=== PATIENT | female | born 1975 | race Caucasian/White ===

== ENCOUNTER 2020-10-30 13:02 | Emergency (ER) | payer BC ==
[2020-10-30 13:08] VITALS: RESP 18
[2020-10-30] MEDS ORDERED: IBUPROFEN 600 MG TAB PO STA (13:20)
[2020-10-30] MEDS ORDERED: ACETAMINOPHEN TAB 500 MG TAB PO STA (13:20)
--- NOTE | 2020-10-30 13:33 | XR ---
EXAMINATION TYPE: XR chest 2V DATE OF EXAM: 10/30/2020 COMPARISON: NONE HISTORY: Weakness, cough, and fever. TECHNIQUE: Frontal and lateral views of the chest are obtained. FINDINGS: There is no suspicious peripheral focal air space opacity, pleural effusion, or pneumothor ax seen. The cardiac silhouette size is within normal limits. The osseous structures are intact. O verlying bra strap. IMPRESSION: No acute pulmonary process.
--- NOTE | 2020-10-30 13:54 | ED ---
URI HPI - General Source: patient, RN notes reviewed Mode of arrival: ambulatory Limitations: no limitations <Trung Ibanez - Last Filed: 10/30/20 13:52> <Armando Valdes - Last Filed: 10/30/20 15:24> - General Chief Complaint: Upper Respiratory Infection Stated Complaint: fever,cough Time Seen by Provider: 10/30/20 13:11 - History of Present Illness Initial Comments: 45-year-old female presented to the emergency Department with chief complaint of cough congestion fever or chills body aches. Patient states started last Sunday she initially does feel like she had a cold she was seen at [facility] had a rapid Covid which was negative, patient negative influenza test at urgent care was given a Z-Dylan she did not start this. Patient states she said ongoing congestion and worsening fever today. (Trung Ibanez) - Related Data Home Medications Medication Instructions Recorded Confirmed Ascorbic Acid [Vitamin C] 1,000 mg PO DAILY 10/30/20 10/30/20 Azithromycin [Zithromax Z-pack (6 See Taper PO DIRECTED 10/30/20 10/30/20 tabs)] Benzonatate [Benzonatate Perle] 200 mg PO HS PRN 10/30/20 10/30/20 Cholecalciferol [Vitamin D3 (25 50 mcg PO DAILY 10/30/20 10/30/20 Mcg = 1000 Iu)] Cyanocobalamin (Vitamin B-12) 1,000 mcg PO DAILY 10/30/20 10/30/20 [Vitamin B-12] Multivitamins, Thera [Multivitamin 1 tab PO DAILY 10/30/20 10/30/20 (formulary)] Phenyleph/Acetaminophn/Doxylam 1 cap PO Q4H PRN 10/30/20 10/30/20 [Vicks Dayquil-Nyquil Sinex Cap] Allergies Allergy/AdvReac Type Severity Reaction Status Date / Time prednisone Allergy Unknown Verified 10/30/20 14:07 Review of Systems ROS Other: All systems not noted in ROS Statement are negative. <Trung Ibanez - Last Filed: 10/30/20 13:52> ROS Other: All systems not noted in ROS Statement are negative. <Armando Valdes - Last Filed: 10/30/20 15:24> ROS Statement: Those systems with pertinent positive or pertinent negative responses have been documented in the HPI. Past Medical History Past Medical History: No Reported History History of Any Multi-Drug Resistant Organisms: None Reported Past Surgical History: Breast Surgery, Orthopedic Surgery Past Psychological History: No Psychological Hx Reported Smoking Status: Never smoker Past Alcohol Use History: None Reported Past Drug Use History: None Reported <Trung Ibanez - Last Filed: 10/30/20 13:52> General Exam Limitations: no limitations General appearance: alert, in no apparent distress Head exam: Present: atraumatic, normocephalic, normal inspection Eye exam: Present: normal appearance, PERRL, EOMI. Absent: scleral icterus, conjunctival injection, periorbital swelling ENT exam: Present: normal exam, normal oropharynx, mucous membranes moist Neck exam: Present: normal inspection, full ROM. Absent: tenderness, meningismus, lymphadenopathy Respiratory exam: Present: normal lung sounds bilaterally. Absent: respiratory distress, wheezes, rales, rhonchi, stridor Cardiovascular Exam: Present: normal rhythm, tachycardia, normal heart sounds. Absent: systolic murmur, diastolic murmur, rubs, gallop, clicks GI/Abdominal exam: Present: soft, normal bowel sounds. Absent: distended, tenderness, guarding, rebound, rigid Back exam: Absent: CVA tenderness (R), CVA tenderness (L) Neurological exam: Present: alert Skin exam: Present: warm, dry, intact, normal color. Absent: rash <Trung Ibanez - Last Filed: 10/30/20 13:52> Course <Armando Valdes - Last Filed: 10/30/20 15:24> Vital Signs 10/30/20 10/30/20 10/30/20 13:05 13:18 14:34 Temperature 102.3 F H 100.8 F H Pulse Rate 122 H 89 Respiratory 18 18 18 Rate Blood Pressure 120/78 110/72 O2 Sat by Pulse 96 97 Oximetry - Reevaluation(s) Reevaluation #1: 10/30/20 15:20 Patient was endorsed to me by ED WILLAIM Ibanez with her lab results still pending. Patient reports having upper respiratory infection symptoms of cough, congestion and fever for the past 6 days or so. Patient's Covid test is negative. Patient's chest x-ray is unremarkable. Patient's labs are fairly unremarkable. Patient's UA is not suggestive of UTI. I suspect that the patient likely has a viral upper respiratory infection. Patient was counseled about URIs, fever control and symptom management. Patient was clearly explained return and follow-up instructions, and she feels comfortable with this plan. Patient was instructed to follow up closely with her primary care provider. (Armando Valdes) Medical Decision Making - Lab Data Result diagrams: 10/30/20 14:27 10/30/20 14:27 <Armando Valdes - Last Filed: 10/30/20 15:24> - Lab Data Lab Results 10/30/20 10/30/20 10/30/20 Range/Units 13:24 14:27 14:27 WBC 8.8 (3.8-10.6) k/uL RBC 4.61 (3.80-5.40) m/uL Hgb 14.6 (11.4-16.0) gm/dL Hct 41.4 (34.0-46.0) % MCV 89.8 (80.0-100.0) fL MCH 31.6 (25.0-35.0) pg MCHC 35.2 (31.0-37.0) g/dL RDW 12.7 (11.5-15.5) % Plt Count 161 (150-450) k/uL MPV 8.2 Neutrophils % 81 % Lymphocytes % 7 % Monocytes % 10 % Eosinophils % 0 % Basophils % 0 % Neutrophils # 7.1 (1.3-7.7) k/uL Lymphocytes # 0.7 L (1.0-4.8) k/uL Monocytes # 0.9 (0-1.0) k/uL Eosinophils # 0.0 (0-0.7) k/uL Basophils # 0.0 (0-0.2) k/uL Sodium (137-145) mmol/L Potassium (3.5-5.1) mmol/L Chloride (98-107) mmol/L Carbon Dioxide (22-30) mmol/L Anion Gap mmol/L BUN (7-17) mg/dL Creatinine (0.52-1.04) mg/dL Est GFR (CKD-EPI)AfAm (>60 ml/min/1.73 sqM) Est GFR (CKD-EPI)NonAf (>60 ml/min/1.73 sqM) Glucose (74-99) mg/dL Plasma Lactic Acid Venancio (0.7-2.0) mmol/L Calcium (8.4-10.2) mg/dL Total Bilirubin (0.2-1.3) mg/dL AST (14-36) U/L ALT (4-34) U/L Alkaline Phosphatase (38-126) U/L Total Protein (6.3-8.2) g/dL Albumin (3.5-5.0) g/dL Urine Color Yellow Urine Appearance Cloudy H (Clear) Urine pH 8.0 (5.0-8.0) Ur Specific [place] 1.018 (1.001-1.035) Urine Protein Trace H (Negative) Urine Glucose (UA) Negative (Negative) Urine Ketones 1+ H (Negative) Urine Blood Negative (Negative) Urine Nitrite Negative (Negative) Urine Bilirubin Negative (Negative) Urine Urobilinogen <2.0 (<2.0) mg/dL Ur Leukocyte Esterase Negative (Negative) Urine RBC 4 (0-5) /hpf Urine WBC 1 (0-5) /hpf Ur Squamous Epith Cells <1 (0-4) /hpf Urine Bacteria Occasional H (None) /hpf Urine Mucus Rare H (None) /hpf Coronavirus (PCR) Not Detected (Not Detectd) 10/30/20 10/30/20 Range/Units 14:27 14:27 WBC (3.8-10.6) k/uL RBC (3.80-5.40) m/uL Hgb (11.4-16.0) gm/dL Hct (34.0-46.0) % MCV (80.0-100.0) fL MCH (25.0-35.0) pg MCHC (31.0-37.0) g/dL RDW (11.5-15.5) % Plt Count (150-450) k/uL MPV Neutrophils % % Lymphocytes % % Monocytes % % Eosinophils % % Basophils % % Neutrophils # (1.3-7.7) k/uL Lymphocytes # (1.0-4.8) k/uL Monocytes # (0-1.0) k/uL Eosinophils # (0-0.7) k/uL Basophils # (0-0.2) k/uL Sodium 135 L (137-145) mmol/L Potassium 4.2 (3.5-5.1) mmol/L Chloride 100 (98-107) mmol/L Carbon Dioxide 27 (22-30) mmol/L Anion Gap 8 mmol/L BUN 6 L (7-17) mg/dL Creatinine 0.58 (0.52-1.04) mg/dL Est GFR (CKD-EPI)AfAm >90 (>60 ml/min/1.73 sqM) Est GFR (CKD-EPI)NonAf >90 (>60 ml/min/1.73 sqM) Glucose 103 H (74-99) mg/dL Plasma Lactic Acid Venancio 0.8 (0.7-2.0) mmol/L Calcium 9.9 (8.4-10.2) mg/dL Total Bilirubin 0.7 (0.2-1.3) mg/dL AST 30 (14-36) U/L ALT 18 (4-34) U/L Alkaline Phosphatase 67 (38-126) U/L Total Protein 7.1 (6.3-8.2) g/dL Albumin 4.4 (3.5-5.0) g/dL Urine Color Urine Appearance (Clear) Urine pH (5.0-8.0) Ur Specific [place] (1.001-1.035) Urine Protein (Negative) Urine Glucose (UA) (Negative) Urine Ketones (Negative) Urine Blood (Negative) Urine Nitrite (Negative) Urine Bilirubin (Negative) Urine Urobilinogen (<2.0) mg/dL Ur Leukocyte Esterase (Negative) Urine RBC (0-5) /hpf Urine WBC (0-5) /hpf Ur Squamous Epith Cells (0-4) /hpf Urine Bacteria (None) /hpf Urine Mucus (None) /hpf Coronavirus (PCR) (Not Detectd) Disposition <Trung Ibanez - Last Filed: 10/30/20 13:52> Is patient prescribed a controlled substance at d/c from ED?: No Time of Disposition: 15:24 <Armando Valdes - Last Filed: 10/30/20 15:24> Clinical Impression: Upper respiratory tract infection Disposition: HOME SELF-CARE Condition: Stable Instructions (If sedation given, give patient instructions): Upper Respiratory Infection (ED) Additional Instructions: Return to the ER immediately should you develop trouble breathing/shortness of breath, any significant pain, persistent vomiting, feeling dizzy or faint, or new or worsening symptoms. Follow up closely with your primary care provider. Referrals: None,Stated [Primary Care Provider] - 1-2 days James Hammer MD [REFERRING] - 1-2 days
[2020-10-30] MEDS ORDERED: SODIUM CHLORIDE 0.9% 1,000 ML IV ONE (14:34)
[2020-10-30 14:35] VITALS: BP 110/72; PULSE 89; TEMP 100.8
[2020-10-30 14:54] LABS: Basophils % (A) 0 %; Eosinophils % (A) 0 %; HCT 41.4 % (34.0-46.0); HGB 14.6 gm/dL (11.4-16.0); Lymphocytes # (A) 0.7 k/uL (1.0-4.8); Lymphocytes % (A) 7 %; MCH 31.6 pg (25.0-35.0); MCHC 35.2 g/dL (31.0-37.0); MCV 89.8 fL (80.0-100.0); Mean Platelet Volume 8.2; Monocytes # (A) 0.9 k/uL (0-1.0); Monocytes % (A) 10 %; Neutrophils # (A) 7.1 k/uL (1.3-7.7); Neutrophils % (A) 81 %; Platelet Count 161 k/uL (150-450); RBC 4.61 m/uL (3.80-5.40); RDW 12.7 % (11.5-15.5); WBC 8.8 k/uL (3.8-10.6)
[2020-10-30 14:56] LABS: Appearance,Urine Cloudy (Clear); Bacteria,Urine Occasional /hpf; Bilirubin,Urine Negative (Negative); Blood,Urine Negative (Negative); Color,Urine Yellow; Glucose,Urine (UA) Negative (Negative); Ketones,Urine 1+ (Negative); Leukocyte Esterase,Urine Negative (Negative); Mucus,Urine Rare /hpf; Nitrite,Urine Negative (Negative); Protein,Urine Trace (Negative); RBC,Urine 4 /hpf (0-5); Specific Gravity,Urine 1.018 (1.001-1.035); Squamous Epithelial Cell,Urine <1 /hpf (0-4); Urobilinogen,Urine <2.0 mg/dL (<2.0); WBC,Urine 1 /hpf (0-5)
[2020-10-30 15:12] LABS: ALT 18 U/L (4-34); AST 30 U/L (14-36); African American GFR (CKD) >90 (>60 ml/min/1.73 sqM); Albumin 4.4 g/dL (3.5-5.0); Alkaline Phosphatase 67 U/L (38-126); Anion Gap 8 mmol/L; Blood Urea Nitrogen 6 mg/dL (7-17); Calcium 9.9 mg/dL (8.4-10.2); Carbon Dioxide 27 mmol/L (22-30); Chloride 100 mmol/L (98-107); Glucose 103 mg/dL (74-99); Non-African American GFR(CKD) >90 (>60 ml/min/1.73 sqM); Potassium 4.2 mmol/L (3.5-5.1); Sodium 135 mmol/L (137-145); Total Bilirubin 0.7 mg/dL (0.2-1.3); Total Protein 7.1 g/dL (6.3-8.2)
== END 2020-10-30 15:56 | disposition home or self-care (01) ==
LOC: EC 13:02
DX: J06.9 Acute upper respiratory infection, unspecified (principal)
CPT/HCPCS: 36415; 71046; 80053; 81001; 83605; 85025; 87635; 96360; 99283